=== PATIENT | male | born 1980 | race Caucasian/White ===

== ENCOUNTER 2022-12-30 14:58 | Emergency (ER) | payer BC ==
[2022-12-30] MEDS: Lidocaine 1% 5 ML VIAL INJECT ONE (15:21)
[2022-12-30] MEDS: Bacitracin/Neomycin/Polymyxin B Oint 0.9 GM U/D Packet TOP ONE (16:02)
[2022-12-30] MEDS: Bacitracin/Neomycin/Polymyxin B Oint 28.4 GM Tube TOP ONE (16:02)
== END 2022-12-30 16:27 | disposition home or self-care (01) ==
LOC: KA.ED 14:58
DX: S61.211A Laceration without foreign body of left index finger without damage to nail, initial encounter (principal); F17.210 Nicotine dependence, cigarettes, uncomplicated; W26.0XXA Contact with knife, initial encounter
CPT/HCPCS: 12002; 99282; 99283; J3490